=== PATIENT | male | born 1975 ===

== ENCOUNTER 2024-02-10 11:55 | Emergency (ER) | payer OTHER, SELFPAY ==
[2024-02-10 12:03] VITALS: BP 136/88
[2024-02-10 12:16] VITALS: BMI 29.5
--- NOTE | 2024-02-10 12:49 | ED.GENMED ---
History of Present Illness
General
Chief Complaint: Cough
Source: patient
Exam Limitations: none
Time Seen by Provider: 02/10/24 12:12
Nursing documentation reviewed up to this point in time: agreed with
History of Present Illness
History of Present Illness:
Patient is a 48-year-old male presenting with 5 days of fever and cough. Patient states that he developed fevers up to 100.1F and intermittent dry cough. He states that yesterday he was having some mild pain in his central chest although feels
much improved today. Patient does feel as if his symptoms have improved drastically today although came to the emergency department with his family given they all have similar symptoms. He does however note some mild redness to both of his eyes
with some tearing. Patient does deny any visual changes, blurry vision, double vision, or pain in his eyes. Patient denies any current chest pain or shortness of breath. Patient denies any headache, sore throat, nausea/vomiting or diarrhea.
Review of Systems
Review of Systems
Allergies reviewed?: Yes
All Other Systems: ROS reviewed and negative except as documented in HPI and ROS
Phy Exam
Physical Exam
Physical Exam:
Vitals: Patient's vital signs are stable. Afebrile
General: Patient is very well appearing, no acute distress. Nontoxic-appearing
Skin: Warm and dry, no rashes or lesions
Head: Normocephalic, atraumatic
Eyes: Mild conjunctival injection bilaterally with clear, watery discharge. EOMs intact without pain. Visual sanders intact. No nystagmus.
Throat: Posterior pharynx nonerythematous without any tonsillar edema or exudates. Uvula midline. Protecting airway
Neck: Normal ROM, no cervical spine tenderness, no meningismus
Cardiac: Regular rate and rhythm, no murmurs. No reproducible chest wall tenderness
Pulm: Normal respiratory effort, no wheezes, rales, rhonchi heard on exam.
Abdomen: Abdomen soft. No abdominal tenderness.
Extremities: No evidence of cyanosis or edema. Great distal pulse
Neuro: AAOx3. CN II-XII intact. No focal neurologic deficits.
Psychiatric: Normal affect.
Course
Orders/Labs/Results
Orders:
Orders
02/10/24 12:24
COVID-19 Antigen Urgent
Source: Nasal Swab
02/10/24 12:49
CR Chest - 2 Views Urgent
Comment:
Reason For Exam: cough, sob
Vital Signs
Initial and Last Documented VS:
Initial Vital Signs
Temp Pulse Resp BP Pulse Ox
98.8 F 86 18 136/88 98
02/10/24 12:03 02/10/24 12:03 02/10/24 12:03 02/10/24 12:03 02/10/24 12:03
Last Documented Vital Signs
Temp Pulse Resp BP Pulse Ox
98.8 F 85 18 135/85 99
02/10/24 12:03 02/10/24 14:00 02/10/24 14:00 02/10/24 14:00 02/10/24 14:00
MDM/Problems Addressed
Differential Diagnosis Includes:
Not limited to: COVID, viral illness, viral conjunctivitis, bacterial conjunctivitis, bronchitis, no
MDM/Problems Addressed:
48-year-old male presenting with 5 days of low-grade fever and dry cough at home. Patient reports much improvement in symptoms today although did present with and son both with similar symptoms. Vital signs stable. Patient is afebrile.
Patient is not toxic. Physical exam as above. Patient is extremely well-appearing, in absolutely no distress. He is oxygenating well at 99% on room air. He has no current complaints and is asymptomatic at this time. Heart regular rate and
rhythm. Lungs are clear bilaterally. Patient is perfusing well. He does have some bilateral conjunctival injection with watery, clear discharge from both eyes. No proptosis. Extraocular muscle intact. Patient denies any visual complaints other
than tearing. Visual sanders are intact. A COVID test will be sent. Patient's and patient requesting chest x-ray which we will obtain although no clear indication of acute cardiopulmonary process.
COVID test was found to be negative. Although history suspicious for likely COVID infection and patient's 's test was positive. I suspect patient did have/is recovering from COVID. Suspect likely viral conjunctivitis based on ocular
symptoms/appearance this time. No indication for antibiotics. He will monitor symptoms closely. Chest x-ray shows no acute cardiopulmonary process. Patient appears very well. Vital signs remained stable. He is in no distress. No indication
for admission. Patient will be discharged with primary care follow-up. Supportive care discussed. Case discussed with attending physician
Chronic conditions affecting care:
N/A
Acute Exacerbation and/or Progression of Chronic Illness:
N/A
*Radiology
Radiology exam reviewed: preliminary read by ED provider and radiology read reviewed
*Pulse Oximetry
Patient hypoxic: no
*EKG
Interpreted by ED Provider?: NA
*Product Advisor Interpretation
Rate: Product Advisor- N/A
*Critical Care Note
Total Time (30-74mins, 75-104mins- exclusive of procedures): Not Applicable
ED Attending Note
-
Portions of this chart may have been created with voice recognition software.� Occasional wrong word or��sound alike� substitutions may have occurred due to the inherent limitations of voice recognition software.
Discharge Plan
Departure
Patient Disposition: Home (Routine Discharge)
Date of Disposition: 02/10/24
Time of Disposition: 14:04
Patient with high blood pressure during this ER visit?: Yes
Condition: Good
Covid-19: Suspected COVID-19
Discharge Problem:
COVID-19
Instructions: COVID-19 ED, BLOOD PRESSURE
Referrals:
Ursula Whitaker MD [Family Provider] - Follow up in 5-7 days
Activity Restrictions/Additional Instructions:
RETURN TO THE EMERGENCY DEPARTMENT WITH ANY FEVERS, CHILLS, CHEST PAIN, SHORTNESS OF BREATH/DIFFICULTY BREATHING, WORSENING IN CURRENT SYMPTOMS, OR ANY OTHER CONCERNS
-As discussed�your chest x-ray showed no evidence of a pneumonia.
-It is important that you stay well-hydrated. You can take Tylenol and/or ibuprofen as needed for fevers, headache.
-You should follow-up with your primary care provider in a few days to ensure that symptoms are improving/for further evaluation
Monitor your symptoms closely and return to the emergency department any acute worsening/new symptoms
Interventions
Interventions:
*Risk Screen - Suicide Last Done: 02/10/24 12:03
*General Assessment Last Done: 02/10/24 12:03
*Neglect/Abuse Screening Last Done: 02/10/24 12:03
ED- Fall Risk Assessment Last Done: 02/10/24 12:16
*ED COVID-19 Vaccine History Last Done: 02/10/24 12:16
*Nursing Disposition Last Done: 02/10/24 14:18
ED- Pulmonary Assessment Last Done: 02/10/24 12:16
Discharge Date and Time
Discharge Date/Time: 02/10/24 14:12
Print Language: [place]
[2024-02-10 12:54] LABS: COVID-19 Antigen Negative (Negative)
[2024-02-10 14:00] VITALS: BP 135/85
== END 2024-02-10 14:12 | disposition home or self-care (01) ==
LOC: EMR 11:55
PROVIDERS: Physician Assistant; EMERGENCY PHYSICIAN Emergency Medicine; FAMILY PHYSICIAN Family Medicine
DX: R50.9 Fever, unspecified (principal); R05.9 Cough, unspecified; R06.02 Shortness of breath; R07.89 Other chest pain; Z11.52 Encounter for screening for COVID-19; R03.0 Elevated blood-pressure reading, without diagnosis of hypertension
CPT/HCPCS: 99283; 71046; 87811

== ENCOUNTER 2024-06-29 21:13 | Emergency (ER) | payer OTHER, SELFPAY ==
[2024-06-29 21:13] VITALS: BMI 31.6
[2024-06-29 21:15] VITALS: BP 169/104
[2024-06-29 21:29] VITALS: BP 151/97
--- NOTE | 2024-06-29 21:47 | EDRN ---
When this RN assessed pt., pt. states, 'I'm here because my is worried my blood pressure is high. I feel fine'. RN asked pt. multiple times if he has been having headache today, pt. denies, says 'few days ago'. Pt. denies neuro. symptoms, pt.
is without complaints.
[2024-06-29 21:48] VITALS: BP 140/91
[2024-06-29 22:00] VITALS: BP 142/94
--- NOTE | 2024-06-29 22:42 | ED.GENMED ---
History of Present Illness
General
Chief Complaint: Headache
Source: patient
Time Seen by Provider: 06/29/24 22:10
Nursing documentation reviewed up to this point in time: agreed with
History of Present Illness
History of Present Illness:
This a pleasant 49-year-old male that presents to the emergency department after having a headache. He states that for the last 2 days he has had a headache but that is now resolved. Patient reported having high blood pressure as checked at home.
He is here for evaluation. He states that he has no symptoms at this time. Denies chest pain or shortness of breath. Reports no blurry vision. Denies any headache. States he has no numbness or tingling. He states that he feels 'normal'.
Review of Systems
Review of Systems
Allergies reviewed?: Yes
All Other Systems: ROS reviewed and negative except as documented in HPI and ROS
Constitutional: Reports no symptoms
EENT: Reports no symptoms
Respiratory: Reports no symptoms
Cardiac: Reports no symptoms
ABD/GI: Reports no symptoms
: Reports no symptoms
Musculoskeletal: Reports no symptoms
Skin: Reports no symptoms
Neurological: Reports no symptoms
Endocrine: Reports no symptoms
Hematologic/Lymphatic: Reports no symptoms
Psychiatric: Reports no symptoms
Phy Exam
General Physical Exam
General Presentation: well appearing and no apparent distress
General Skin: warm and dry
General Habitus: normal
General Mental: alert
General Hydration: appears well hydrated
ENT Exam
ENT Exam: EOMI, pharynx normal, neck supple and normocephalic
Eye Exam
Eye Exam: PERRL, cornea clear and conjunctiva normal
Eye Exam General: PERRL: bilateral and EOM intact: bilateral
Pupil Exam: Bilateral: round and reactive
Conjunctival Changes: bilateral: none
Retinal Exam: normal vascular pulsation: Bilateral
Cardiovascular Exam
Cardiovascular Exam: regular rate/rhythm, no edema, no murmur and normal peripheral pulses
Pulmonary Exam
Pulmonary Exam: lungs clear, no respiratory distress, no rales, no crackles, no rhonchi, no stridor, no wheezing and no cough
Gastrointestinal Exam
Gastrointestinal Exam: normal bowel sounds, non tender, soft, no organomegaly, no pulsatile mass and non distended
Neurological Exam
Neurological Exam: alert, oriented x3, no motor deficits and speech normal
Musculoskeletal Exam
Musculoskeletal Exam: full ROM and no edema
Skin Exam
Skin Exam: normal color, warm/dry, no rash and no petechia
Psychiatric Exam
Psychiatric Exam: normal mood/affect
Course
Orders/Labs/Results
Orders:
Orders
06/29/24 21:31
EKG [Electrocardiogram (*1)] Urgent
Reason for Study: Hypertension, Benign
EKG- Treatment ONCE
Vital Signs
Initial and Last Documented VS:
Initial Vital Signs
Temp Pulse Resp BP Pulse Ox
98.4 F 79 16 169/104 98
06/29/24 21:15 06/29/24 21:15 06/29/24 21:15 06/29/24 21:15 06/29/24 21:15
Last Documented Vital Signs
Temp Pulse Resp BP Pulse Ox
98.4 F 79 16 142/94 95
06/29/24 21:15 06/29/24 21:15 06/29/24 21:15 06/29/24 22:00 06/29/24 22:18
*Critical Care Note
Total Time (30-74mins, 75-104mins- exclusive of procedures): Not Applicable
Update Note
Update Note:
06/29/2024 2248 PM: Patient refused further testing. He had no blood work done. He had no CT scan. He did have an EKG which showed normal sinus rhythm rate of 71 with normal intervals, normal axis. No evidence of acute ischemia present. Patient
does not want any further testing stating that he feels fine. I encouraged him to follow-up with his family doctor. 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 He will get a mandatory exam at the next renewal. I encouraged him
to return to the ER should he have any further symptoms. He will follow-up with his family doctor that is located in [facility] on [facility]. Discussed return to ER instructions at length with patient. He verbalized good
understanding. He stated that he understood that without further testing a missed diagnosis is possible. Patient being discharged without any symptoms in good condition.
ED Attending Note
-
Portions of this chart may have been created with voice recognition software.� Occasional wrong word or��sound alike� substitutions may have occurred due to the inherent limitations of voice recognition software.
Discharge Plan
Departure
Patient Disposition: Home (Routine Discharge)
Date of Disposition: 06/29/24
Time of Disposition: 22:49
Patient with high blood pressure during this ER visit?: Yes
Discharge Problem:
Headache, High blood pressure
Instructions: Headache, Adult (DC), BLOOD PRESSURE
Referrals:
[facility] [Provider Group]
[facility] [Outside]
[facility] [Outside]
Faiza Menezes NP [Family Provider] -
Activity Restrictions/Additional Instructions:
It was a pleasure meeting you and taking part in your care. We hope for your continued healing and wellness.
Please read discharge instructions in their entirety. However, they are for general education and may not describe your exact diagnosis at discharge. Information on your ER visit and medical conditions were discussed with you along with appropriate
follow up information...
If indicated, please take your medications as instructed and indicated on discharge paperwork.
Please schedule a follow up appointment as directed. Call to schedule an appointment
Please return to the emergency department with ANY change in, persisting, or worsening of symptoms. If any of your symptoms do not improve, or persist, or become more severe within 6-12 hours, please return to the emergency department for further
care.
Please return to the emergency department if you develop a headache, neck pain/stiffness, fever greater than 100.4F, chest pain, shortness of breath, persistent nausea, vomiting, slurred speech, difficulty walking, numbness/tingling, weakness, signs
of infection or any other symptoms that are worrisome to you.
If you have any questions or concerns please do not hesitate to call the Hospital at or E-mail me directly at [email or web address]
Interventions
Interventions:
*Risk Screen - Suicide Last Done: 06/29/24 21:15
*General Assessment Last Done: 06/29/24 21:32
*Neglect/Abuse Screening Last Done: 06/29/24 21:15
ED- Fall Risk Assessment Last Done: 06/29/24 21:32
*ED COVID-19 Vaccine History Last Done: 06/29/24 21:33
ED- Neurological Assessment Last Done: 06/29/24 21:32
Discharge Date and Time
Print Language: [place]
== END 2024-06-29 22:53 | disposition home or self-care (01) ==
LOC: EMR 21:13
PROVIDERS: EMERGENCY PHYSICIAN Student in an Organized Health Care Education/Training Program; FAMILY PHYSICIAN Nurse Practitioner Adult Health
DX: R51.9 Headache, unspecified (principal); R03.0 Elevated blood-pressure reading, without diagnosis of hypertension
CPT/HCPCS: 99283; 93005